=== PATIENT | male | born 1945 | race Caucasian/White ===

== ENCOUNTER 2018-07-20 08:00 | Observation (INO) ==
[2018-07-20] MEDS ORDERED: ceFAZolin 2 GM Premix Inj 2 GM/50 ML PIGGYBACK IV.SIG SCH (11:00)
[2018-07-20] MEDS ORDERED: Chlorhexidine Gluconate 2% 1 Pack (2 Cloths) TOPICAL ONE (11:00)
[2018-07-20] MEDS ORDERED: Metoprolol Tartrate 25 MG Tablet PO ONE (11:00)
[2018-07-20] MEDS ORDERED: Chlorhexidine 4% Topical 120 APPLIC/120 ML Bottle TOPICAL SCH (11:00)
[2018-07-20] MEDS ORDERED: Sodium Chlor 0.9% Inj 500 ML IV.CONT ONE (11:00)
[2018-07-20 11:16] LABS: Baso % (Auto) 0.5 % (0.0-2.0); Eos % (Auto) 0.6 % (0.0-4.0); Hemoglobin 13.2 gm/dL (13.0-17.0); Lymph % (Auto) 11.9 % (9.0-44.0); Mean Corpuscular Volume 91.2 fL (80.0-100.0); Mono # (Auto) 0.7 th/mm3 (0.0-0.9); Mono % (Auto) 8.4 % (0.0-8.0); Neut # (Auto) 6.4 th/mm3 (1.8-7.7); Neut % (Auto) 78.6 % (16.0-70.0); Platelet Count 171 th/mm3 (150-450); Red Blood Count 4.27 mil/mm3 (4.50-5.90); Red Cell Distribution Width 13.7 % (11.6-17.2); White Blood Count 8.1 th/mm3 (4.0-11.0)
[2018-07-20 11:41] LABS: Calcium 9.8 mg/dL (8.5-10.1); Carbon Dioxide 23.7 meq/L (21.0-32.0); Potassium 4.4 meq/L (3.5-5.1)
[2018-07-20] MEDS ORDERED: Sodium Chlor 0.9% Inj 40 ML, Bupivacaine Liposo PF 1.3% Inj 20 ML P-ARTICULR SCH ×2 (12:00)
[2018-07-20] MEDS ORDERED: Phenylephrine/NS 1000 MCG/10ML Syringe IV.PUSH ONE (13:27)
[2018-07-20] MEDS ORDERED: Lidocaine PF 1% Inj 5 ML Syringe OTHER ONE (13:27)
--- NOTE | 2018-07-20 15:28 | P.BOP ---
- Preoperative Diagnosis (1) Quadriceps tendon rupture - Postoperative Diagnosis (1) Quadriceps tendon rupture Date of procedure: 07/20/18 Procedure: right quadriceps tendon repair Anesthesia: GETA Surgeon: Joanna Fernandez MD Flat Grinder Operator: Jan Barron Estimated blood loss (mL): 25 Tourniquet time (min): 75 Pathology: none sent Condition: stable Disposition: PACU
[2018-07-20] MEDS ORDERED: fentaNYL Citrate Inj 100 MCG/2 ML Ampul ONE (15:32)
[2018-07-20] MEDS ORDERED: *morphine SULFATE 4 MG/ML PERIprocedure ONLY ONE ×3 (15:42→18:29)
--- NOTE | 2018-07-20 18:10 | P.CONIM ---
History of Present Illness Service: [facility] Consult date: 07/20/18 Reason for Consult: Medical management Primary Care Provider: Nathan Gonzalez Chief Complaint: Right knee pain History of Present Illness: This is a pleasant 72 years old male with past medical history of hypertension, DVT, and renal insufficiency came in for quadricep tendon rupture and had a procedure for right quadricep tendon repair today with Dr. Joanna Fernandez. Medicine team was consulted for medical management. Patient seen and examined laying in the recovery room, awake alert and oriented x3 however his sleepy. Patient complains of pain on the right leg, right knee, patient stated he fell at home on the last step of stairs and tore his knee. Patient denies any surgical history before. Patient denies any smoking, but admitted drinking every day about a glass of wine every day. Patient denies any other medical history. Patient denies any headache or dizziness, chest pain or shortness of breath, abdominal pain, nausea, vomiting, diarrhea or constipation. Patient denies any fever or chills. Review of Systems All other systems reviewed negative except as stated in HPI PMFSH - History History Provided By: Patient - Medical History Medical History: Medical History (Last Reviewed 07/20/18 @ 18:08 by MONTRELL Stevens) Renal failure Deep vein blood clot of right lower extremity Hypertension - Surgical History Surgical History: Surgical History (Last Reviewed 07/20/18 @ 18:08 by MONTRELL Stevens) No history of previous surgery - Family History Family History: Family History (Last Updated 07/20/18 @ 18:08 by MONTRELL Stevens) Other No pertinent family history - Social History I have reviewed the patient's Social History: Yes - Tobacco History Second Hand Smoke Exposure: No Tobacco Use In Past 30 Days: No Smoking Status: Never smoker - Alcohol History How Often Do You Have a Drink Containing Alcohol: 4 or more times a week - Substance Use History Substance History: No History of Abuse - Travel History Recent Travel in the [place] Within the Last 8 Weeks: No Recent Travel Out of the Country Within the Last 8 Weeks: No Medications and Allergies Active Medications: Active Medications Hydrocodone Bitart/Acetaminophen ([place] 5/325) 1 tab PO Q4H PRN PRN Reason: PAIN SCALE 1 TO 5 Hydrocodone Bitart/Acetaminophen ([place] 5/325) 2 tab PO Q4H PRN PRN Reason: PAIN SCALE 6 TO 10 Chlorhexidine Gluconate (Hibiclens 4% Topical) 1 applicatio TOPICAL ONCE [facility] Stop: 07/24/18 10:59 Docusate Sodium (Colace) 100 mg PO BID [facility] Hydrochlorothiazide (Microzide) 12.5 mg PO DAILY [facility] Lactated Ringer's (Lr 1000 Ml Inj) 1,000 mls @ 30 mls/hr IV.CONT .Q24H ONE Stop: 07/21/18 10:59 Last Admin: 07/20/18 10:50 Dose: 30 mls/hr Sodium Chloride (Ns Inj) 500 mls @ 30 mls/hr IV.CONT .[id number] ONE Stop: 07/21/18 03:39 Last Admin: 07/20/18 10:50 Dose: Not Given Cefazolin Sodium/Dextrose (Ancef 2 Gm Premix Inj) 2 gm in 50 mls @ 100 mls/hr IV.SIG PHARMACY SERVICES DIRECTOR [facility] Stop: 07/20/18 23:00 Last Infusion: 07/20/18 14:10 Dose: Infused Cefazolin Sodium/Dextrose (Ancef 2 Gm Premix Inj) 2 gm in 50 mls @ 100 mls/hr IV.SIG Q8H [facility] Stop: 07/21/18 06:29 Lisinopril (Prinivil) 20 mg PO DAILY [facility] Miscellaneous Information ([facility] [place] [facility]) 1 each OTHER UNSCH PRN PRN Reason: SEE LABEL COMMENTS Stop: 07/21/18 15:17 Ondansetron HCl (Zofran Odt) 4 mg PO Q6H PRN PRN Reason: NAUSEA OR VOMITING Povidone Iodine (Betadine 7.5% Scrub) 1 applicatio TOPICAL ONCE [facility] Stop: 07/24/18 10:59 Allergies Allergy/AdvReac Type Severity Reaction Status Date / Time Sulfa (Sulfonamide Allergy Hives Verified 07/20/18 11:06 Antibiotics) Home Medications Medication Instructions Recorded Confirmed Type apixaban [Eliquis] 5 mg PO BID 07/17/18 07/20/18 History hydrochlorothiazide 12.5 mg PO DAILY 07/17/18 07/20/18 History lisinopril 20 mg PO DAILY 07/17/18 07/20/18 History Exam Vital signs: Vital Signs 07/20/18 11:08 07/20/18 15:23 Temperature 98.2 F 98 F Pulse Rate 78 94 H Respiratory Rate 16 18 Blood Pressure 143/91 H 110/57 L Pulse Oximetry 96 94 L Intake & Output 07/19/18 07/20/18 07/20/18 18:59 06:59 18:59 Intake Total 1050 / 1050 Output Total / Balance 1025 / 1025 Weight 79.5 kg Intake: IV 50 / 50 Ancef 2 GM Premix Inj 2 gm In 50 / 50 50 ml @ 100 mls/hr IV.SIG PHARMACY SERVICES DIRECTOR [facility] Rx#:[id number] Anesthesia Amount 1000 / 1000 Output: Estimated Blood Loss 25 / Other: Weight On Admission 79.5 kg Narrative: GENERAL: Well-developed, well-nourished, male in no apparent distress SKIN: Warm and dry. HEAD: Atraumatic. Normocephalic. EYES: Pupils equal and round. No scleral icterus. No injection or drainage. ENT: No nasal bleeding or discharge. Mucous membranes pink and moist. NECK: Trachea midline. No JVD. CARDIOVASCULAR: Regular rate and rhythm. RESPIRATORY: No accessory muscle use. Clear to auscultation. Breath sounds equal bilaterally. GASTROINTESTINAL: Abdomen soft, non-tender, nondistended. Hepatic and splenic margins not palpable. MUSCULOSKELETAL: Extremities without clubbing, cyanosis, or edema. No obvious deformities. Right knee with Nate wrap and can advance brace. Sensation intact on right toes. NEUROLOGICAL: Awake and alert. No obvious cranial nerve deficits. Motor grossly within normal limits. Moving all 4 extremities except right lower extremity with limited range of motion. Normal speech. PSYCHIATRIC: Appropriate mood and affect; insight and judgment normal. Results - Labs CBC & Chem 7: 07/20/18 11:00 07/20/18 11:00 Labs: Laboratory Results - last 24 hr 07/20/18 07/20/18 07/20/18 11:00 11:00 11:00 WBC 8.1 RBC 4.27 L Hgb 13.2 Hct 39.0 MCV 91.2 MCH 31.0 MCHC 34.0 RDW 13.7 Plt Count 171 MPV 9.0 Neut % (Auto) 78.6 H Lymph % (Auto) 11.9 [place] % (Auto) 8.4 H Eos % (Auto) 0.6 Baso % (Auto) 0.5 Neut # (Auto) 6.4 Lymph # (Auto) 1.0 [place] # (Auto) 0.7 Eos # (Auto) 0.0 Baso # (Auto) 0.0 WBC Differential . Differential Comment Auto diff final PT 10.0 INR 1.0 Sodium 137 Potassium 4.4 Chloride 105 Carbon Dioxide 23.7 Anion Gap 8 BUN 44 H Creatinine 1.99 H Estimated GFR 33 L Random Glucose 178 H Calcium 9.8 Blood Type Blood Type Recheck Antibody Screen 07/20/18 11:00 WBC RBC Hgb Hct MCV MCH MCHC RDW Plt Count MPV Neut % (Auto) Lymph % (Auto) [place] % (Auto) Eos % (Auto) Baso % (Auto) Neut # (Auto) Lymph # (Auto) [place] # (Auto) Eos # (Auto) Baso # (Auto) WBC Differential Differential Comment PT INR Sodium Potassium Chloride Carbon Dioxide Anion Gap BUN Creatinine Estimated GFR Random Glucose Calcium Blood Type B Positive Blood Type Recheck Required Antibody Screen Negative Assessment and Plan - Assessment (1) Quadriceps tendon rupture Code(s): S76.119A - Strain of unspecified quadriceps muscle, fascia and tendon, initial encounter Status: Acute - Plan This is a pleasant 72 years old male with past medical history of hypertension, DVT, and renal insufficiency came in for quadricep tendon rupture after a fall at home and had a procedure for right quadricep tendon repair today with Dr. Joanna Fernandez. Quadricep tendon rupture Status post quadricep tendon repair -Pain management with bowel regimen -OrthO following Hypertension Blood pressure labile -Hold home dose of lisinopril and hydrochlorothiazide due to acute renal failure -Start on metoprolol -Monitor blood pressure, adjust dose as necessary History of DVT -Patient was on Eliquis at home, will hold -Will defer anticoagulant coagulation with OrthO -Bilateral SCDs Acute renal failure on CKD History of CKD 3 -Start IV fluid -Avoid nephrotoxic's -Hold lisinopril and hydrochlorothiazide -Monitor renal indicis DVT prophylaxis: Bilateral SCDs Code Status: Full code Discussed Condition With: Patient and nurse
[2018-07-20] MEDS ORDERED: Dextrose 50% in Water 50 ML Vial IV.PUSH PRN (18:39)
[2018-07-20] MEDS: Insulin NovoLOG Aspart Correctional Sugar Inj SQ SCH (19:38)
--- NOTE | 2018-07-20 20:03 | ECG ---
Date Performed: 07/20/2018 Time Performed: 11:14:11 PTAGE: 72 years EKG: Sinus rhythm NONSPECIFIC T-WAVE ABNORMALITY BORDERLINE ECG NO PREVIOUS TRACING DOCTOR: Ariela Gilmore Interpretating Date/Time 07/20/2018 19:56:09
[2018-07-20] MEDS: Docusate Sodium 100 MG Capsule PO SCH (21:19)
[2018-07-20] MEDS: ceFAZolin 2 GM Premix Inj 2 GM/50 ML PIGGYBACK IV.SIG SCH (22:35)
[2018-07-21] MEDS: ceFAZolin 2 GM Premix Inj 2 GM/50 ML PIGGYBACK IV.SIG SCH (05:35)
[2018-07-21] MEDS: Insulin NovoLOG Aspart Correctional Sugar Inj SQ SCH ×2 (07:41→12:47)
[2018-07-21] MEDS: Docusate Sodium 100 MG Capsule PO SCH (08:07)
[2018-07-21] MEDS ORDERED: Lisinopril 20 MG Tablet PO SCH (09:00)
--- NOTE | 2018-07-21 09:05 | P.PNOP ---
Subjective Interval history: Stable overnight. Complains of appropriate right knee pain, improved with [place]. Has not been seen by PT yet. Physical Exam Vital signs: Vital Signs 07/20/18 11:08 07/20/18 15:23 07/20/18 15:45 Temperature 98.2 F 98 F Pulse Rate 78 94 H 74 Respiratory Rate 16 18 18 Blood Pressure 143/91 H 110/57 L 122/67 Pulse Oximetry 96 94 L 95 07/20/18 16:00 07/20/18 16:15 07/20/18 16:30 Temperature Pulse Rate 76 75 73 Respiratory Rate 18 18 18 Blood Pressure 123/74 129/73 125/73 Pulse Oximetry 95 95 95 07/20/18 17:30 07/20/18 20:30 07/20/18 21:16 Temperature 97.6 F 98.1 F Pulse Rate 73 73 77 Respiratory Rate 18 18 16 Blood Pressure 122/68 122/69 116/69 Pulse Oximetry 95 96 07/21/18 00:00 07/21/18 04:00 Temperature 97.5 F L 97.9 F Pulse Rate 77 72 Respiratory Rate 18 18 Blood Pressure 138/74 131/70 Pulse Oximetry 95 95 Intake & Output 07/20/18 07/21/18 07/21/18 18:59 06:59 18:59 Intake Total 1050 / 1050 460 / 460 Output Total 900 / 900 Balance 1025 / 1025 -440 / -440 Weight 79.5 kg 79 kg Intake: IV 50 / 50 100 / 100 Ancef 2 GM Premix Inj 2 gm In 50 / 50 100 / 100 50 ml @ 100 mls/hr IV.SIG Q8H [facility] Rx#:[id number] Oral 360 / 360 Anesthesia Amount 1000 / 1000 Output: Urine 900 / 900 Estimated Blood Loss 25 / 25 Other: Weight On Admission 79.5 kg Narrative: Right lower extremity dressing clean, dry, intact. 2+DP. +EHL/FHL/PF/DF, SILT. Results - Labs CBC & Chem 7: 07/20/18 11:00 07/20/18 11:00 Laboratory Results - last 24 hr 07/20/18 07/20/18 07/20/18 11:00 11:00 11:00 WBC 8.1 RBC 4.27 L Hgb 13.2 Hct 39.0 MCV 91.2 MCH 31.0 MCHC 34.0 RDW 13.7 Plt Count 171 MPV 9.0 Neut % (Auto) 78.6 H Lymph % (Auto) 11.9 [place] % (Auto) 8.4 H Eos % (Auto) 0.6 Baso % (Auto) 0.5 Neut # (Auto) 6.4 Lymph # (Auto) 1.0 [place] # (Auto) 0.7 Eos # (Auto) 0.0 Baso # (Auto) 0.0 WBC Differential . Differential Comment Auto diff final PT 10.0 INR 1.0 Sodium 137 Potassium 4.4 Chloride 105 Carbon Dioxide 23.7 Anion Gap 8 BUN 44 H Creatinine 1.99 H Estimated GFR 33 L POC Glucose Random Glucose 178 H Calcium 9.8 Blood Type Blood Type Recheck Antibody Screen 07/20/18 07/20/18 07/21/18 11:00 19:05 07:18 WBC RBC Hgb Hct MCV MCH MCHC RDW Plt Count MPV Neut % (Auto) Lymph % (Auto) [place] % (Auto) Eos % (Auto) Baso % (Auto) Neut # (Auto) Lymph # (Auto) [place] # (Auto) Eos # (Auto) Baso # (Auto) WBC Differential Differential Comment PT INR Sodium Potassium Chloride Carbon Dioxide Anion Gap BUN Creatinine Estimated GFR POC Glucose 171 H 183 H Random Glucose Calcium Blood Type B Positive Blood Type Recheck Required Antibody Screen Negative Assessment and Plan - Assessment and Plan 72 year old male POD 1 s/p right quadriceps tendon repair Plan: WBAT RLE with knee immobilizer in place at all times PT eval today Pain control Restart Christiano valentin Probable D/C home today pending PT evaluation
[2018-07-21 09:30] VITALS: RESP 17
--- NOTE | 2018-07-21 09:41 | P.PN ---
Subjective Interval history: Follow-up quad injury repair. Cleared for discharge by orthopedic surgery pending PT eval may resume anticoagulation tonight. [employer] Prescription Drug Monitoring Database has been queried and verified prior to prescribing the controlled subsection. Patient is having significant pain caused by [ surgery ] which will last more than 3 days. Trial of alternative treatment options other than prescribed opioids has not helped. I believe that it is medically necessary to treat the patients pain because it is affecting patients ability to [ do adl ]. Patient doing well with physical therapy Physical Exam Vital signs: Vital Signs 07/20/18 11:08 07/20/18 15:23 07/20/18 15:45 Temperature 98.2 F 98 F Pulse Rate 78 94 H 74 Respiratory Rate 16 18 18 Blood Pressure 143/91 H 110/57 L 122/67 Pulse Oximetry 96 94 L 95 07/20/18 16:00 07/20/18 16:15 07/20/18 16:30 Temperature Pulse Rate 76 75 73 Respiratory Rate 18 18 18 Blood Pressure 123/74 129/73 125/73 Pulse Oximetry 95 95 95 07/20/18 17:30 07/20/18 20:30 07/20/18 21:16 Temperature 97.6 F 98.1 F Pulse Rate 73 73 77 Respiratory Rate 18 18 16 Blood Pressure 122/68 122/69 116/69 Pulse Oximetry 95 96 07/21/18 00:00 07/21/18 04:00 07/21/18 08:00 Temperature 97.5 F L 97.9 F 98.3 F Pulse Rate 77 72 79 Respiratory Rate 18 18 17 Blood Pressure 138/74 131/70 144/77 H Pulse Oximetry 95 95 96 Intake & Output 07/20/18 07/21/18 07/21/18 18:59 06:59 18:59 Intake Total 1050 / 1050 460 / 460 Output Total 900 / 900 Balance 1025 / 1025 -440 / -440 Weight 79.5 kg 79 kg Intake: IV 50 / 50 100 / 100 Ancef 2 GM Premix Inj 2 gm In 50 / 50 100 / 100 50 ml @ 100 mls/hr IV.SIG Q8H [facility] Rx#:[id number] Oral 360 / 360 Anesthesia Amount 1000 / 1000 Output: Urine 900 / 900 Estimated Blood Loss 25 / Other: Weight On Admission 79.5 kg Narrative: GENERAL: Well-developed, well-nourished, male in no apparent distress SKIN: Warm and dry. CARDIOVASCULAR: Regular rate and rhythm. RESPIRATORY: No accessory muscle use. Clear to auscultation. Breath sounds equal bilaterally. GASTROINTESTINAL: Abdomen soft, non-tender, nondistended. MUSCULOSKELETAL: Extremities without clubbing, cyanosis, or edema. No obvious deformities. Right knee with Nate wrap and can advance brace. Sensation intact on right toes. NEUROLOGICAL: Awake and alert. No obvious cranial nerve deficits. Motor grossly within normal limits. Moving all 4 extremities except right lower extremity with limited range of motion. Normal speech. Results - Labs CBC & Chem 7: 07/20/18 11:00 07/21/18 10:45 Laboratory Results - last 24 hr 07/20/18 07/20/18 07/20/18 11:00 11:00 11:00 WBC 8.1 RBC 4.27 L Hgb 13.2 Hct 39.0 MCV 91.2 MCH 31.0 MCHC 34.0 RDW 13.7 Plt Count 171 MPV 9.0 Neut % (Auto) 78.6 H Lymph % (Auto) 11.9 [place] % (Auto) 8.4 H Eos % (Auto) 0.6 Baso % (Auto) 0.5 Neut # (Auto) 6.4 Lymph # (Auto) 1.0 [place] # (Auto) 0.7 Eos # (Auto) 0.0 Baso # (Auto) 0.0 WBC Differential . Differential Comment Auto diff final PT 10.0 INR 1.0 Sodium 137 Potassium 4.4 Chloride 105 Carbon Dioxide 23.7 Anion Gap 8 BUN 44 H Creatinine 1.99 H Estimated GFR 33 L POC Glucose Random Glucose 178 H Calcium 9.8 Blood Type Blood Type Recheck Antibody Screen 07/20/18 07/20/18 07/21/18 11:00 19:05 07:18 WBC RBC Hgb Hct MCV MCH MCHC RDW Plt Count MPV Neut % (Auto) Lymph % (Auto) [place] % (Auto) Eos % (Auto) Baso % (Auto) Neut # (Auto) Lymph # (Auto) [place] # (Auto) Eos # (Auto) Baso # (Auto) WBC Differential Differential Comment PT INR Sodium Potassium Chloride Carbon Dioxide Anion Gap BUN Creatinine Estimated GFR POC Glucose 171 H 183 H Random Glucose Calcium Blood Type B Positive Blood Type Recheck Required Antibody Screen Negative - Procedures right quadriceps tendon repair Assessment and Plan - Assessment (1) Quadriceps tendon rupture Code(s): S76.119A - Strain of unspecified quadriceps muscle, fascia and tendon, initial encounter Status: Acute - Plan This is a pleasant 72 years old male with past medical history of hypertension, DVT, and renal insufficiency came in for quadricep tendon rupture after a fall at home and had a procedure for right quadricep tendon repair with Dr. Joanna Fernandez. Quadriceps tendon rupture Status post quadriceps tendon repair -Pain management with bowel regimen counseled regarding narcotic -Ortho following Hypertension Blood pressure labile -Hold home dose of lisinopril and hydrochlorothiazide due to acute renal failure -Start on metoprolol -Monitor blood pressure, adjust dose as necessary History of DVT -Patient was on Eliquis at home, will hold -Will defer anticoagulant coagulation with OrthO-restart tonight -Bilateral SCDs Acute renal failure on CKD. Improving History of CKD 3 -Discontinue IV fluid -Avoid nephrotoxic's -Hold lisinopril and hydrochlorothiazide -Monitor renal indicis, check CPK DVT prophylaxis: Bilateral SCDs Discharge Planning: Discharge patient to home Condition on discharge: Improved Regular Diet as tolerated Ad Jessica activity no driving Rx written: Toprol, Lortab and BMP Follow-up with primary care physician and orthopedic surgeon
[2018-07-21 11:48] LABS: Bilirubin,Urine Negative (Negative); Clarity,Urine Clear (Clear); Color,Urine Yellow (Yellw/Straw); Glucose,Urine (UA) 50 mg/dL (Negative); Leukocyte Esterase,Urine Negative (Negative); Mucus,Urine Few /lpf (Occasional); Nitrite,Urine Negative (Negative); Specific Gravity,Urine 1.019 (1.002-1.035)
[2018-07-21 11:49] LABS: Calcium 8.9 mg/dL (8.5-10.1); Carbon Dioxide 28.1 meq/L (21.0-32.0); Magnesium 1.8 mg/dL (1.5-2.5)
--- NOTE | 2018-07-21 13:41 | P.DCO ---
- Diagnosis (1) Quadriceps tendon rupture Status: Acute - Physical Therapy Order: Evaluate and treat, Improve ambulation, Strength and gait training - Case Management Consult Case Management Consult-Home Health: Yes - Certification I have seen patient Francisco Melendez on 07/21/18. My clinical findings support the need for the requested home health care services because: Deconditioned with increased weakness I certify that my clinical findings support that this patient is homebound because: Unsteady gait/balance
[2018-07-21 16:46] VITALS: BP 144/80; PULSE 76; TEMP 98.1; O2SAT 96
--- NOTE | 2018-07-27 20:50 | P.OP ---
- Preoperative Diagnosis (1) Quadriceps tendon rupture - Postoperative Diagnosis (1) Quadriceps tendon rupture Date of procedure: 07/20/18 Procedure: quadriceps tendon repair Anesthesia: MODESTO Surgeon: Joanna Fernandez MD Wood Gouger: Jan Barron Estimated blood loss (mL): 25 Tourniquet time (min): 75 Pathology: none sent Operation and Findings: Indications:This is a 72 year old male who sustained a right quadriceps tendon rupture after missing a step at home. I have discussed the risks, benefits, alternative procedures, expected outcomes and recommended operative treatment.Risks include but are not limited to infection, bleeding, damage to neurovascular structures, failure of repair, extensor lag, persistent pain, and stiffness. Patient verbalized understanding and wishes to proceed with surgical fixation. Description of Operation: The patient was identified in the preoperative holding area and the correct site was clearly marked. He was then taken back to the operating room and placed supine on the OR table. General anesthesia was administered and preoperative antibiotics given. A bump was placed under the right hip and a tourniquet placed to the right thigh. The right leg was then prepped and draped in the usual sterile fashion. A timeout was performed prior to start and everyone was in agreement. At this point in time the limb was exsanguinated with an esmarch bandage and the tourniquet was inflated to 250mm Hg and remained inflated for the duration of the case. I then began by making a vertical incision over the anterior knee. Copious amounts of hematoma were evacuated from the knee. The quadriceps tendon tear was encountered and it did propagate into the medial and lateral retinaculum. This was a complete tear avulsed from the patella. The tissue was of average quality though there was some calcification noted within the distal tendon which was excised. Next, a trough was made with a rongeur into the attachment site of the tendon. I then made 3 vertical drill holes in the patella with a 2.0 mm drill bit. Next the quadriceps tendon was whip-stitched with a #2 Fiberwiresuture in locking fashion to form a very secure 3 limb construct. These had excellent hold in the tissues. The two middle suture limbs were passed through the central tunnel and the outer limbs were brought through the outer tunnels. These sutures were then tied over the distal pole of the patella. The medial and lateral retinacular tears were then repaired with 2-0 Fiberwire suture. Repair was noted to be excellent and the knee was able to be flexed to 90 degrees with minimal tension on the sutures. The wounds were copiously irrigated and closed in layers after infiltration with Exparel.The skin was closed with timmy and sterile dressings applied. The patient was then placed into a knee immobilizer, awoken from general anesthesia, and taken to the PACU in stable condition. MONTRELL Rowe was present during the entire procedure to include patient positioning and the procedure. The medical necessity of the Nurse Practitioner [place] was indicated in this case due to the complexity of the case itself. During the surgical case, the surgical assist was working the back table while my Globe Cleaner MONTRELL was directly assisting me.
== END 2018-07-21 18:13 | disposition home or self-care (01) ==
LOC: INTOOBSV 10:02 → HSDI 10:02 → N07 20:49
PROVIDERS: ADMIT Orthopaedic Surgery; ATTEND Orthopaedic Surgery